=== PATIENT | male | born 1935 | race Caucasian/White ===

== ENCOUNTER 2019-04-29 19:40 | Inpatient (IN) ==
[2019-04-29] MEDS ORDERED: KETOROLAC 30 MG/1 ML VIAL IM STA (20:05)
[2019-04-29] MEDS ORDERED: ACETAMINOPHEN 500 MG TABLET PO STA (20:05)
[2019-04-29] MEDS ORDERED: KETOROLAC 30 MG/1 ML VIAL IV STA (20:15)
[2019-04-29 21:51] LABS: Basophils % 0.2 % (0.0-0.8); Hematocrit 36.6 VOL% (42.0-52.0); Hemoglobin 11.7 GM/DL (14.0-18.0); Immature Granulocytes % 0.7 %; Immature Granulocytes Absolute 0.07 #; Lymphocytes # 0.6 10*3/uL (1.4-4.0); Lymphocytes % 5.5 % (21.2-54.2); Mean Corpuscular Volume 86.9 FL (87-102); Mean Platelet Volume 11.1 FL (9.6-12.0); Monocytes % 5.7 % (1.7-12.7); Neutrophils % 87.9 % (38.7-73.9); Platelet Count 82 T/CUMM (130-400); Red Blood Count 4.21 MC/CUMM (3.8-5.5); Red Cell Distribution Width 14.6 % (9.3-17.3)
[2019-04-29 22:00] LABS: Albumin 2.1 G/DL (3.4-5.0); Bilirubin,Total 0.5 MG/DL (0.2-1.0); Osmolality,Calculated 295.3 MOS/KG (273-304); Total Protein 4.5 G/DL (6.4-8.3)
[2019-04-29 22:02] LABS: Calcium 5.5 MG/DL (8.5-10.1)
[2019-04-29] MEDS ORDERED: ONDANSETRON 4 MG/2 ML VIAL IV PRN (22:14)
[2019-04-29 22:37] LABS: Apearance,Urine CLEAR (Clear); Bilirubin,Urine Negative (Negative); Blood, Urine Negative (Negative); Glucose,Urine (UA) Negative (Negative); Ketones,Urine Negative (Negative); Mucus,Urine Occasional /LPF (Occasional); Nitrite,Urine Negative (Negative); Protein,Urine Negative; Urine Color Yellow (Yellow); Urine Specific Gravity 1.019 (1.001-1.035); Urine Urobilinogen < 2.0 EU/DL (0.2-1.0); WBC,Urine 1 /HPF (0-6)
[2019-04-29 22:37] LABS: INR 1.2; PT Patient Result 13.1 SECS (9.6-12.2); Partial Thromboplastin Time 25.9 SECS (20.8-36.0)
[2019-04-29 22:50] LABS: Free T4 (Free Thyroxine) 1.1 NG/DL (0.76-1.46); Thyroid Stimulating Hormone 1.02 uIU/ml (0.358-3.74)
[2019-04-30] MEDS: SODIUM CHLORIDE 0.9% 1,000 ML IV SCH ×2 (00:40→18:18)
[2019-04-30] MEDS ORDERED: MAGNESIUM SULF RIDER 2 GM in PREMIX 1 EACH IV PRN (00:50)
[2019-04-30] MEDS ORDERED: MAGNESIUM SULF RIDER 4 GM in PREMIX 1 EACH IV PRN (00:50)
[2019-04-30] MEDS ORDERED: CALCIUM GLUCONATE 2,000 MG in SODIUM CHLORIDE 0.9% 100 ML IV ONE (02:33)
[2019-04-30] MEDS: MORPHINE 4 MG/1 ML VIAL IV PRN ×2 (05:15→13:44)
[2019-04-30 14:37] LABS: Albumin 3.3 G/DL (3.4-5.0); Bilirubin,Total 0.9 MG/DL (0.2-1.0); Calcium 8.1 MG/DL (8.5-10.1); Osmolality,Calculated 283.1 MOS/KG (273-304); Total Protein 6.6 G/DL (6.4-8.3)
[2019-04-30] MEDS ORDERED: BUPIVACAINE SPINAL 0.75% 2 ML AMP SPINAL ONE (14:47)
[2019-04-30] MEDS ORDERED: ceFAZolin 1,000 MG VIAL ONE (15:30)
[2019-04-30] MEDS ORDERED: DEXAMETHASONE 4 MG/1 ML VIAL ONE (16:15)
[2019-04-30] MEDS ORDERED: BUPIVACAINE MPF 0.5% /EPI 30 ML VIAL ONE (16:15)
[2019-04-30] MEDS ORDERED: LIDOCAINE 2% 5 ML VIAL ONE ×2 (16:16→16:52)
[2019-04-30] MEDS ORDERED: propofoL 200 MG/20 ML VIAL IV ONE (16:51)
[2019-04-30] MEDS ORDERED: SEVOFLURANE 1 UNIT/15 MINUTE INH ONE (16:52)
[2019-04-30] MEDS ORDERED: ONDANSETRON 4 MG/2 ML VIAL ONE (16:52)
[2019-04-30] MEDS ORDERED: DEXMEDETOMIDINE 200 MCG/2 ML VIAL IV ONE (16:52)
[2019-04-30] MEDS ORDERED: fentaNYL 100 MCG/2 ML VIAL ONE (16:52)
[2019-04-30] MEDS ORDERED: PHENYLEPHRINE 1 MG/10 ML SYRINGE IV ONE (16:52)
[2019-04-30] MEDS: DEXTROSE 5% 1,000 ML IV SCH (18:15)
[2019-05-01] MEDS: DEXTROSE 5% 1,000 ML IV SCH ×2 (03:52→18:12)
[2019-05-01 05:05] LABS: Basophils % 0.1 % (0.0-0.8); Hematocrit 44.3 VOL% (42.0-52.0); Hemoglobin 14.3 GM/DL (14.0-18.0); Immature Granulocytes % 0.6 %; Immature Granulocytes Absolute 0.06 #; Lymphocytes # 0.5 10*3/uL (1.4-4.0); Lymphocytes % 5.1 % (21.2-54.2); Mean Corpuscular HGB Conc 32.3 GM/DL (32-36); Mean Platelet Volume 10.2 FL (9.6-12.0); Neutrophils % 85.2 % (38.7-73.9); Platelet Count 146 T/CUMM (130-400); Red Blood Count 5.15 MC/CUMM (3.8-5.5); Red Cell Distribution Width 14.4 % (9.3-17.3); White Blood Count 9.9 T/CUMM (4-12)
[2019-05-01 05:33] LABS: Calcium 8.1 MG/DL (8.5-10.1); Osmolality,Calculated 281.5 MOS/KG (273-304)
[2019-05-01] MEDS: CHOLECALCIFEROL 5,000 UNIT TABLET PO SCH (08:18)
[2019-05-01] MEDS: ASPIRIN 325 MG TABLET PO SCH (08:19)
[2019-05-01] MEDS ORDERED: TUBERCULIN SKIN TEST 0.1 ML SYRINGE INTRADERM ONE (10:18)
[2019-05-01] MEDS: oxyCODONE/ACETAMINOPHEN 5-325 MG TABLET PO PRN (12:24)
[2019-05-02 06:02] LABS: Basophils % 0.4 % (0.0-0.8); Eosinophils # 0.1 10*3/uL (0.0-0.87); Hematocrit 41.1 VOL% (42.0-52.0); Hemoglobin 13.5 GM/DL (14.0-18.0); Immature Granulocytes % 0.5 %; Immature Granulocytes Absolute 0.04 #; Lymphocytes # 0.8 10*3/uL (1.4-4.0); Lymphocytes % 9.3 % (21.2-54.2); Mean Corpuscular HGB Conc 32.8 GM/DL (32-36); Mean Corpuscular Volume 85.3 FL (87-102); Mean Platelet Volume 10.4 FL (9.6-12.0); Monocytes % 11.5 % (1.7-12.7); Neutrophils % 77.3 % (38.7-73.9); Platelet Count 133 T/CUMM (130-400); Red Blood Count 4.82 MC/CUMM (3.8-5.5); Red Cell Distribution Width 14.6 % (9.3-17.3); White Blood Count 8.1 T/CUMM (4-12)
[2019-05-02 06:22] LABS: Calcium 7.9 MG/DL (8.5-10.1); Osmolality,Calculated 288.8 MOS/KG (273-304)
[2019-05-02] MEDS: oxyCODONE/ACETAMINOPHEN 5-325 MG TABLET PO PRN (07:09)
[2019-05-02] MEDS: ASPIRIN 325 MG TABLET PO SCH (08:55)
[2019-05-02] MEDS: CHOLECALCIFEROL 5,000 UNIT TABLET PO SCH (08:58)
[2019-05-03] MEDS: oxyCODONE/ACETAMINOPHEN 5-325 MG TABLET PO PRN (01:06)
[2019-05-03 06:15] LABS: Basophils % 0.5 % (0.0-0.8); Eosinophils # 0.2 10*3/uL (0.0-0.87); Eosinophils % 3.2 % (0.00-10.9); Hematocrit 39.4 VOL% (42.0-52.0); Hemoglobin 12.7 GM/DL (14.0-18.0); Immature Granulocytes % 0.5 %; Immature Granulocytes Absolute 0.03 #; Lymphocytes # 0.8 10*3/uL (1.4-4.0); Lymphocytes % 13.6 % (21.2-54.2); Mean Corpuscular HGB Conc 32.2 GM/DL (32-36); Mean Corpuscular Volume 85.5 FL (87-102); Mean Platelet Volume 10.3 FL (9.6-12.0); Monocytes % 12.3 % (1.7-12.7); Neutrophils % 69.9 % (38.7-73.9); Platelet Count 141 T/CUMM (130-400); Red Blood Count 4.61 MC/CUMM (3.8-5.5); Red Cell Distribution Width 14.7 % (9.3-17.3); White Blood Count 6.2 T/CUMM (4-12)
[2019-05-03 06:32] LABS: Calcium 8.1 MG/DL (8.5-10.1); Osmolality,Calculated 295.6 MOS/KG (273-304)
[2019-05-03] MEDS: CHOLECALCIFEROL 5,000 UNIT TABLET PO SCH (08:49)
[2019-05-03] MEDS: ASPIRIN 325 MG TABLET PO SCH (08:49)
[2019-05-03 11:56] VITALS: BP 115/55
== END 2019-05-03 15:01 | disposition home or self-care (01) | DRG 481 ==
LOC: N.ED 19:40 → N.EDINP 22:14 → N.4E 23:49 → N.3E 04-30 16:05
PROVIDERS: ADMIT Internal Medicine; ATTEND Internal Medicine